=== PATIENT | female | born 1950 | race Caucasian/White ===

== ENCOUNTER 2019-11-05 10:29 | Observation (INO) ==
--- NOTE | 2019-11-05 10:51 | DR.H&P ---
H&P - History & Physical for Day of: H&P Date: 11/05/19 - Chief Complaint Chief Complaint: syncope, hx of anemia - History of Present Illness History of Present Illness: Patient is a 69 year old female that is a direct admit from Dr. Choudhury's office secondary to syncope. Patient has a PMH of anemia and diabetes. Patient is currently under care of Dr. Kyle Aguilar and recently had a EGD and colonoscopy which revealed no acute bleeding. Patient does complain of syncope and weakness. Patient will be admitted for further evaluation and treatment. - Past Medical History Past Medical History: Anemia, Coronary Artery Disease, Diabetes, Hypertension - Social History Does patient currently use any type of tobacco product: Yes Have you used tobacco products in the last 12 months: Yes Type of Tobacco Use: Cigarettes - Review of Systems Constitutional: See HPI Eyes: See HPI ENT: See HPI Respiratory: See HPI Cardiovascular: See HPI Gastrointestinal: See HPI Genitourinary: See HPI Musculoskeletal: See HPI Skin: See HPI Neurological: See HPI Oriented: Normal Eyes: Normal Ear: Normal Nose: Normal Throat: Normal Respiratory: Diminished Throughout Cardiovascular: Normal : Normal Auscultation: Bowel Sounds: Normal Palpation: Normal Tenderness: Normal Skin: Normal, Other (pale) Musculoskeletal: Instability Psychiatric: Anxiety, Depression, Agitation Mood Description: Flat, Withdrawn Affect: Anxious, Depressed Speech Pattern: Clear - Assessment/Plan (1) Anemia Status: Acute Plan: CBC,. Transfuse for hemoglobin <7 (2) Diabetes Status: Acute Plan: Glucose monitoring. s/s coverage (3) Syncope Status: Acute Plan: EKG, troponin - Allergies Allergies/Adverse Reactions: Allergies Allergy/AdvReac Type Severity Reaction Status Date / Time meperidine [From Demerol] Allergy Verified 11/05/19 10:49 methadone Allergy Verified 11/05/19 10:49
--- NOTE | 2019-11-05 13:45 | RAD ---
HISTORYSYNCOPESTUDYPA and lateral chestCOMPARISONNoneFINDINGSThe lungs are grossly clear with minimal interstitial change. The heart size is normal. The mediastinum is unremarkable. There is no edema or effusion or significant bony abnormality.IMPRESSIONNo evidence for acute cardiopulmonary diseaseElectronically signed by: ALVARO CAI (Nov 05, 2019 13:43:36)
[2019-11-05 13:50] LABS: BASOPHILS % (AUTO) 0.3 % (0.2-1.0); EOSINOPHILS # (AUTO) 0.2 x10^3/uL (0.0-0.2); EOSINOPHILS % (AUTO) 1.1 % (0.9-2.9); HEMATOCRIT 24.1 % (36.0-47.0); HEMOGLOBIN 7.5 g/dL (12.0-16.0); LYMPHOCYTES # (AUTO) 1.6 X10^3/uL (1.3-2.9); LYMPHOCYTES % (AUTO) 10.8 % (21.0-51.0); MEAN CORPUSCULAR HEMOGLOBIN 24.5 pg (27.0-34.0); MEAN PLATELET VOLUME 7.7 fL (7.4-11.0); MONOCYTES # (AUTO) 0.3 x10^3/uL (0.3-0.8); MONOCYTES % (AUTO) 1.9 % (0.0-13.0); NEUTROPHILS # (AUTO) 12.4 x10^3/uL (2.2-4.8); NEUTROPHILS % (AUTO) 85.9 % (42.0-75.0); PLATELET COUNT 380 X10^3/uL (150.0-450.0); RED BLOOD COUNT 3.06 X10^6/uL (3.5-5.4); RED CELL DISTRIBUTION WIDTH 19.6 % (11.6-16.5); WHITE BLOOD COUNT 14.4 X10^3/uL (3.6-10.0)
[2019-11-05 14:09] LABS: ALANINE AMINOTRANSFERASE 27 Units/L (12-78); ALBUMIN 3.6 g/dL (3.4-5.0); ALKALINE PHOSPHATASE 135 Units/L (46-116); ASPARTATE AMINO TRANSFERASE 31 Units/L (15-37); BLOOD UREA NITROGEN 9 mg/dL (7-18); CALCIUM 8.5 mg/dL (8.5-10.1); CARBON DIOXIDE 29.2 mmol/L (21-32); CHLORIDE 97 mmol/L (98-107); CKMB % 1.2 % (<4); COR NA(FOR HYPERGLY) 135 mmol/L (136-145); CREATINE KINASE 83 Units/L (26-192); CREATINE KINASE MB < 1.0 ng/mL (0-4.0); CREATININE 1.02 mg/dL (0.55-1.02); SODIUM 134 mmol/L (136-145); TOTAL PROTEIN 8.4 g/dL (6.4-8.2); TROPONIN I < 0.02 ng/mL (0-1.5); eGFR NON BLACK RACES 57 (>60)
[2019-11-05 14:21] LABS: ANISOCYTOSIS SLIGHT; HYPOCHROMASIA SLIGHT; PLATELET MORPHOLOGY COMMENT NORMAL (NORMAL)
[2019-11-05 18:24] LABS: CKMB % 1.2 % (<4); CREATINE KINASE 84 Units/L (26-192); CREATINE KINASE MB < 1.0 ng/mL (0-4.0); TROPONIN I < 0.02 ng/mL (0-1.5)
[2019-11-05 18:26] LABS: BILIRUBIN,URINE NEGATIVE (NEGATIVE); BLOOD/HEMOGLOBIN,URINE NEGATIVE (NEGATIVE); GLUCOSE, URINE NEGATIVE (NEGATIVE); KETONES,URINE NEGATIVE (NEGATIVE); LEUKOCYTE ESTERASE ,URINE NEGATIVE (NEGATIVE); NITRITES,URINE NEGATIVE (NEGATIVE); PROTEIN,URINE NEGATIVE (NEGATIVE); UROBILINOGEN,URINE NORMAL (NORMAL)
[2019-11-05 18:30] LABS: T4 (THYROXINE) 8.9 ug/dL (4.7-13.3)
[2019-11-05 18:39] LABS: APPEARANCE,URINE CLEAR (CLEAR); COLOR,URINE YELLOW (YELLOW)
[2019-11-05] MEDS: HumuLIN R SUBCUT PRN (21:23)
[2019-11-06 00:05] LABS: CKMB % 1.1 % (<4); CREATINE KINASE 90 Units/L (26-192); CREATINE KINASE MB < 1.0 ng/mL (0-4.0); TROPONIN I < 0.02 ng/mL (0-1.5)
[2019-11-06] MEDS ORDERED: NS 500 ML IV 500 ML IV ONE (00:31)
[2019-11-06 03:32] LABS: BASOPHILS # (AUTO) 0.1 X10^3/uL (0.0-0.1); BASOPHILS % (AUTO) 1.2 % (0.2-1.0); EOSINOPHILS # (AUTO) 0.3 x10^3/uL (0.0-0.2); EOSINOPHILS % (AUTO) 3.8 % (0.9-2.9); HEMATOCRIT 26.3 % (36.0-47.0); HEMOGLOBIN 8.4 g/dL (12.0-16.0); LYMPHOCYTES # (AUTO) 2.3 X10^3/uL (1.3-2.9); LYMPHOCYTES % (AUTO) 28.9 % (21.0-51.0); MEAN CORPUSCULAR HEMOGLOBIN 25.4 pg (27.0-34.0); MEAN CORPUSCULAR HGB CONC 31.8 g/dL (33.0-35.0); MEAN CORPUSCULAR VOLUME 79.9 fL (80.0-100.0); MEAN PLATELET VOLUME 7.6 fL (7.4-11.0); MONOCYTES # (AUTO) 0.5 x10^3/uL (0.3-0.8); MONOCYTES % (AUTO) 5.8 % (0.0-13.0); NEUTROPHILS # (AUTO) 4.8 x10^3/uL (2.2-4.8); NEUTROPHILS % (AUTO) 60.3 % (42.0-75.0); PLATELET COUNT 281 X10^3/uL (150.0-450.0); RED BLOOD COUNT 3.29 X10^6/uL (3.5-5.4); RED CELL DISTRIBUTION WIDTH 18.6 % (11.6-16.5); WHITE BLOOD COUNT 7.9 X10^3/uL (3.6-10.0)
[2019-11-06 03:39] LABS: ALANINE AMINOTRANSFERASE 22 Units/L (12-78); ALBUMIN 2.9 g/dL (3.4-5.0); ALKALINE PHOSPHATASE 118 Units/L (46-116); ASPARTATE AMINO TRANSFERASE 27 Units/L (15-37); BLOOD UREA NITROGEN 10 mg/dL (7-18); CALCIUM 8.1 mg/dL (8.5-10.1); CARBON DIOXIDE 30.3 mmol/L (21-32); CHLORIDE 99 mmol/L (98-107); COR NA(FOR HYPERGLY) 140 mmol/L (136-145); CREATININE 0.89 mg/dL (0.55-1.02); SODIUM 137 mmol/L (136-145); eGFR NON BLACK RACES > 60 (>60)
[2019-11-06 03:53] LABS: PLATELET MORPHOLOGY COMMENT NORMAL (NORMAL)
[2019-11-06] MEDS ORDERED: POTASSIUM CHLORIDE LIQ 20 MEQ UDC PO PRN (04:36)
[2019-11-06] MEDS ORDERED: K-DUR TAB 20 MEQ PO PRN (04:36)
[2019-11-06] MEDS ORDERED: POTASSIUM CHL 60 MEQ/NS 0.45% 500 ML IV PRN (04:36)
[2019-11-06] MEDS ORDERED: KLOR-CON PO PRN (04:36)
[2019-11-06] MEDS ORDERED: POTASSIUM CHL 40 MEQ/NS 0.45% 500 ML IV PRN (04:36)
[2019-11-06] MEDS ORDERED: MICRO K EXTEN CAP 10 MEQ PO PRN (04:36)
[2019-11-06] MEDS ORDERED: K-RIDER 10 MEQ/NS 100 ML 10 MEQ/100 ML BAG IV PRN (04:36)
[2019-11-06] MEDS: HumuLIN R SUBCUT PRN (05:39)
[2019-11-06] MEDS: MAGNESIUM SULFATE 1 GRAM/100 mL PREMIX 2 G/200 ML BAG IV SCH ×2 (06:00→07:16)
[2019-11-06] MEDS ORDERED: NS 250 ML IV 250 ML IV ONE (06:07)
[2019-11-06] MEDS ORDERED: MIRALAX POWDER (1 DOSE 17 G) PO ONE (10:21)
[2019-11-06] MEDS ORDERED: NS 100 ML IV 100 ML with VENOFER 400 MG IV NR ×2 (11:00)
[2019-11-06 12:07] VITALS: BP 133/60
== END 2019-11-06 14:20 | disposition left against medical advice (07) ==
LOC: MED/SURG
PROVIDERS: ADMIT Internal Medicine; ATTEND Internal Medicine
DX: E11.65 Type 2 diabetes mellitus with hyperglycemia; I25.10 Atherosclerotic heart disease of native coronary artery without angina pectoris; D64.89 Other specified anemias; K21.9 Gastro-esophageal reflux disease without esophagitis; R55 Syncope and collapse; Z53.29 Procedure and treatment not carried out because of patient's decision for other reasons; I10 Essential (primary) hypertension; R07.89 Other chest pain
CPT/HCPCS: 36415; 36430; 71020; 71046; 80053; 81003; 82550; 82553; 82607; 82728; 82746; 83540; 83735; 84436; 84466; 84480; 84484; 85025; 86850; 86900; 86901; 86922; 93005; 94760; 96372; 97161; 97166; A4216; A4222; G0378; J1756; J1815; J3475; J7040; J7050; P9016